=== PATIENT | male | born 1960 | race Caucasian/White ===

== ENCOUNTER → 2022-02-13 07:08 | Outpatient (CLI) | payer OTHER, SELFPAY ==
[2022-02-12 18:24] LABS: Adenovirus,PCR Not Detected (NotDetected); Bordetella Pertussis Not Detected (NotDetected); Chlamydophila Pneumoniae, PCR Not Detected (NotDetected); Coronavirus 229E Not Detected (NotDetected); Coronavirus NL63 Not Detected (NotDetected); Coronavirus OC43 Not Detected (NotDetected); Coronovirus HKU1,PCR Not Detected (NotDetected); Human Metapneumovirus Not Detected (NotDetected); Influenza A, PCR Not Detected (NotDetected); Influenza AH1, 2009 Not Detected (NotDetected); Influenza AH1, PCR Not Detected (NotDetected); Influenza AH3,PCR Not Detected (NotDetected); Influenza B, PCR Not Detected (NotDetected); Mycoplasma Pneumoniae, PCR Not Detected (NotDetected); Parainfluenza 1, PCR Not Detected (NotDetected); Parainfluenza 2, PCR Not Detected (NotDetected); Parainfluenza 3, PCR Not Detected (NotDetected); Parainfluenza 4, PCR Not Detected (NotDetected); Respiratory Syncytial Virus Not Detected (NotDetected); Rhinovirus/Enterovirus Not Detected (NotDetected)
[2022-02-12 18:38] LABS: Basophils % 0.9 % (0.1-2.0); Eosinophils # 0.1 K/mm3 (0.0-0.4); Eosinophils % 3.3 % (0.1-12.0); Hematocrit 43.5 % (42.0-52.0); Hemoglobin 14.8 g/dL (14.1-18.0); Lymphocytes # 0.5 K/mm3 (0.7-4.5); Lymphocytes % 12.1 % (10-50); Mean Corpuscular Hemoglobin 32.7 pg (27.0-31.2); Mean Corpuscular Volume 96.3 fl (80-94); Mean Platelet Volume 8.9 fl (7.4-10.4); Monocytes # 0.5 K/mm3 (0.1-1.0); Monocytes % 13.2 % (1.7-9.3); Neutrophils # 2.8 K/mm3 (1.8-7.8); Neutrophils % 70.5 % (37.0-80.0); Platelet Count 198 K/mm3 (142-424); Red Blood Count 4.52 M/mm3 (4.60-6.20); Red Cell Distribution Width 12.5 % (11.5-17.5); White Blood Count 3.9 K/mm3 (4.8-10.8)
[2022-02-12 23:02] LABS: Coronavirus 19, PCR Detected (NotDetected)
== END ==
PROVIDERS: PCP Nurse Practitioner; Visit Provider Nurse Practitioner
DX: U07.1 COVID-19 (principal)
CPT/HCPCS: 85025; 87581; 87632; 87798; C9803; U0003; U0005

== ENCOUNTER → 2022-10-19 11:02 | Outpatient (CLI) | payer OTHER, SELFPAY ==
[2022-10-19 18:45] LABS: Basophils # 0.1 K/mm3 (0-0.2); Basophils % 1.3 % (0.1-2.0); Eosinophils # 0.6 K/mm3 (0.0-0.4); Eosinophils % 8.2 % (0.1-12.0); Hematocrit 47.8 % (42.0-52.0); Hemoglobin 15.8 g/dL (14.1-18.0); Lymphocytes # 1.5 K/mm3 (0.7-4.5); Mean Corpuscular HGB Conc 33.2 g/dL (31.8-35.4); Mean Corpuscular Hemoglobin 32.2 pg (27.0-31.2); Mean Corpuscular Volume 97.1 fl (80-94); Mean Platelet Volume 9.9 fl (7.4-10.4); Monocytes # 0.5 K/mm3 (0.1-1.0); Monocytes % 6.9 % (1.7-9.3); Neutrophils # 4.1 K/mm3 (1.8-7.8); Neutrophils % 61.6 % (37.0-80.0); Platelet Count 294 K/mm3 (142-424); Red Blood Count 4.92 M/mm3 (4.60-6.20); Red Cell Distribution Width 12.5 % (11.5-17.5); White Blood Count 6.7 K/mm3 (4.8-10.8)
[2022-10-19 18:48] LABS: Alanine Aminotransferase 34 U/L (12-78); Albumin Level 4.2 g/dl (3.5-5.0); Albumin/Globulin Ratio 1.7 (1.1-1.8); Alkaline Phosphatase 124 U/L (38-126); Anion Gap 12.5 mEq/L (5-15); Aspartate Amino Transferase 33 U/L (17-59); Bilirubin,Total 0.5 mg/dl (0.2-1.3); Blood Urea Nitrogen 14 mg/dl (9-20); Calcium 8.9 mg/dl (8.4-10.2); Carbon Dioxide 25 mmol/L (22.0-30.0); Chloride 102 mmol/L (98-107); Chol/HDL Ratio 3.1 (1-3.5); Cholesterol 214 mg/dl (140-200); Estimated Glomerular Filt Rate 86 ml/min (>60); GFR (African American) 104 ML/MIN (>60); Globulin 2.5 g/dL (1.3-3.2); Glucose 91 mg/dl (74-100); HDL Cholesterol 70 mg/dl (40-60); Potassium 4.5 mmoL/L (3.5-5.1); Sodium 135 mmol/L (136-145); Total Protein,Serum 6.7 g/dl (6.3-8.2); Triglycerides 199 mg/dl (30-150); VLDL Cholesterol 40 mg/dL (0-40)
[2022-10-19 18:53] LABS: Creatinine,Urine Random 21 mg/dL (Not Estab.); Microalbumin < 6.000 mg/L (0-16.7)
[2022-10-19 18:59] LABS: Direct LDL Cholesterol 84.54 mg/dL (100-129)
[2022-10-19 19:02] LABS: Hemoglobin A1C 5.3 % (4.0-6.0)
[2022-10-19 19:19] LABS: Prostate Specific Ag Screen 0.9 ng/ml (0.0-4.0)
== END ==
LOC: LAB 11-06 11:02
PROVIDERS: PCP Nurse Practitioner; Visit Provider Nurse Practitioner
DX: I10 Essential (primary) hypertension (principal); M54.42 Lumbago with sciatica, left side; M62.830 Muscle spasm of back; Z12.5 Encounter for screening for malignant neoplasm of prostate; Z82.49 Family history of ischemic heart disease and other diseases of the circulatory system; Z79.899 Other long term (current) drug therapy
CPT/HCPCS: 80053; 80061; 82043; 82570; 83036; 84443; 85025; G0103

== ENCOUNTER 2023-08-06 17:44 | Outpatient (CLI) | payer OTHER, SELFPAY ==
[2023-08-06 18:37] LABS: Anion Gap 8.3 mEq/L (5-15); Blood Urea Nitrogen 13 mg/dl (9-20); Calcium 8.6 mg/dl (8.4-10.2); Carbon Dioxide 26 mmol/L (22.0-30.0); Chloride 104 mmol/L (98-107); Estimated Glomerular Filt Rate 98 ml/min (>60); GFR (African American) 119 ML/MIN (>60); Glucose 98 mg/dl (74-100); Potassium 4.3 mmoL/L (3.5-5.1); Sodium 134 mmol/L (136-145)
== END 2023-08-06 23:59 ==
LOC: LAB.DROPOF 17:44
PROVIDERS: PCP Nurse Practitioner; Visit Provider Nurse Practitioner
DX: Z01.818 Encounter for other preprocedural examination (principal); K02.9 Dental caries, unspecified
CPT/HCPCS: 80048

== ENCOUNTER 2024-05-07 16:09 | Outpatient (CLI) | payer OTHER, SELFPAY ==
[2024-05-07 18:33] LABS: Basophils # 0.1 K/mm3 (0-0.2); Basophils % 1.1 % (0.1-2.0); Eosinophils # 0.4 K/mm3 (0.0-0.4); Eosinophils % 7.5 % (0.1-12.0); Hematocrit 43.8 % (42.0-52.0); Lymphocytes # 1.4 K/mm3 (0.7-4.5); Lymphocytes % 26.6 % (10-50); Mean Corpuscular HGB Conc 34.2 g/dL (31.8-35.4); Mean Corpuscular Hemoglobin 33.1 pg (27.0-31.2); Mean Corpuscular Volume 96.8 fl (80-94); Mean Platelet Volume 8.7 fl (7.4-10.4); Monocytes # 0.4 K/mm3 (0.1-1.0); Neutrophils % 56.8 % (37.0-80.0); Platelet Count 257 K/mm3 (142-424); Red Blood Count 4.52 M/mm3 (4.60-6.20); White Blood Count 5.3 K/mm3 (4.8-10.8)
[2024-05-07 19:02] LABS: Alanine Aminotransferase 32 U/L (12-78); Albumin Level 4.2 g/dl (3.5-5.0); Albumin/Globulin Ratio 1.7 (1.1-1.8); Alkaline Phosphatase 106 U/L (38-126); Aspartate Amino Transferase 29 U/L (17-59); Bilirubin,Total 0.6 mg/dl (0.2-1.3); Blood Urea Nitrogen 11 mg/dl (9-20); Calcium 9.2 mg/dl (8.4-10.2); Carbon Dioxide 27 mmol/L (22.0-30.0); Chloride 106 mmol/L (98-107); Cholesterol 231 mg/dl (140-200); Estimated Glomerular Filt Rate 86 ml/min (>60); GFR (African American) 104 ML/MIN (>60); Globulin 2.5 g/dL (1.3-3.2); Glucose 98 mg/dl (74-100); HDL Cholesterol 77 mg/dl (40-60); Sodium 134 mmol/L (136-145); Total Protein,Serum 6.7 g/dl (6.3-8.2); Triglycerides 243 mg/dl (30-150); VLDL Cholesterol 49 mg/dL (0-40)
[2024-05-07 19:13] LABS: Direct LDL Cholesterol 93.51 mg/dL (100-129)
[2024-05-07 20:38] LABS: Thyroid Stimulating Hormone 2.02 uIU/mL (0.465-4.68)
[2024-05-07 22:18] LABS: Hemoglobin A1C 5.3 % (4.0-6.0)
== END 2024-05-07 23:59 | disposition home or self-care (01) ==
LOC: LAB.DROPOF 05-08 09:48
PROVIDERS: PCP Nurse Practitioner; Visit Provider Nurse Practitioner
DX: I10 Essential (primary) hypertension (principal); Z12.5 Encounter for screening for malignant neoplasm of prostate
CPT/HCPCS: 80050; 80053; 80061; 83036; 84443; 85025; G0103

== ENCOUNTER 2025-06-03 10:20 | Outpatient (CLI) | payer OTHER, SELFPAY ==
--- OUTSIDE RECORDS SUMMARY | 2025-06-07 10:27 | XMS_ITS | Clinical Summary ---
Author Organization [facility] Address [address] [place] [address] Phone Care Team Providers Care Bilingual Spanish Inbound Sales Name Role Phone Unavailable Primary Care Provider Unavailabl e Allergies No known active allergies Medications AMLODIPINE/VALSA RTAN/HCTZ (EXFORGE HCT ORAL) Take by mouth daily. Active travoprost, benzalkonium, (TRAVATAN) 0.004 % ophthalmic solution Apply 1 Drop to eye nightly. Active amLODIPine (NORVASC) 5 mg tablet TAKE ONE TABLET BY MOUTH DAILY 30 Tab 0 11/07/2012 Active lisinopril (PRINIVIL;ZESTRI L) 20 mg TAKE ONE TABLET BY MOUTH DAILY 30 Tab 0 02/11/2013 Active omeprazole (PRILOSEC OTC) 20 mg Oral Tablet, Delayed Release (E.C.) Take 1 Tablet by mouth daily. 90 Tablet 3 01/06/2025 Active Active Problems Problem Noted Date Diagnosed Date Esophageal obstruction due to food impaction 05/2025 Surgical History Surgery Date Site/Laterality Comments UPPER GASTROINTESTINAL ENDOSCOPY 07/29/2009 EYE SURGERY 07/29/2006 lasix left eye only CATARACT EXTRACTION EXTRACAP SULAR W/ INTRAOCULAR LENS IMPLANTATION 10/27/[address] Grant Hunter Medical History Medical History Date Comments Hypertension Glaucoma left eye only Social History Tobacco Use Types Packs/Day Years Used Date Smoking Tobacco: Former Alcohol Use Standard Drinks/Week Comments Yes 12 (1 standard drink = 0.6 oz pu re alcohol) 3-4 beers per day Sex and Gender Information Value Date Recorded Sex Assigned at Not on file Legal Sex Male 8:35 AM EDT Gender Identity Not on file Sexual Orientation Not on file Last Filed Vital Signs Vital Sign Reading Time Taken Comments Blood Pressure 145/85 01/06/2025 1:30 PM EDT Pulse 69 01/06/2025 1:30 PM EDT Temperature 36.3 C (97.3 F) 01/06/2025 1:09 PM EDT Respiratory Rate 16 01/06/2025 1:30 PM EDT Oxygen Saturation 100% 01/06/2025 1:30 PM EDT Inhaled Oxygen Concentration - - Weight 69.7 kg (153 lb 9.6 oz) 01/06/2025 9:51 A M EDT Height 170.2 cm (5' 7 ) 10/04/2011 10:37 AM EST Body Mass Index - - Plan of Treatment Health Maintenance Due Date Last Done Comments Annual Wellness Exam 1965 Hepatitis C Screening 1980 DTaP/TDaP/Td (1 - Tdap) 1981 Cologuard 2007 Colon Cancer Screening 2007 Colonoscopy 2007 FIT 2007 Sigmoidoscopy 2007 Virtual Colonography 2007 Pneumococcal Vaccine 50+ (1 of 1 - PCV) 2012 Zoster (1 of 2) 2012 COVID-19 Vaccine (3 - 2024-2 6 season) 2025 04/04/2021, 03/07/2021 Influenza Vaccine (#1) 2025 Hepatitis B Vaccine Aged Out No longe r eligible based on patient's age to complete this topic Meningococcal B Vaccine Aged Out No l onger eligible based on patient's age to complete this topic Insurance [employer] OPEN ACCESS [address] OPEN ACCESS AET[employer] OPEN ACCESS [address] [place] [id number]
--- OUTSIDE RECORDS SUMMARY | 2025-06-07 10:27 | XMS_ITS | Clinical Summary ---
Author Organization [facility] Address [address] [place] [address] Care Team Providers Care Sugar Laboratory Assistant Name Role Phone None, None Primary Care Provider Unavailabl e Allergies No known active allergies Medications amLODIPine (NORVASC) 5 mg tablet Take 5 mg by mouth daily. 3 Active lisinopriL (PRINIVIL, ZESTRIL) 20 mg tablet Take 20 mg by mouth daily. 3 Active fexofenadine (DIONY) 180 mg tablet Take 180 mg by mouth daily. Active ibuprofen (MOTRIN) 200 mg tablet Take 200 mg by mouth every 6 hours as needed. Active methylPREDNISol one (MEDROL) 4 mg tab (dosepak) follow package directions 21 Tablet 3 Active benzonatate (TESSALON) 100 mg capsule Take 1 Capsule (100 mg) by mouth 3 times daily as needed for Cough for up to 30 doses. 30 Capsule 1 3 Active Active Problems No known active problems Social History Tobacco Use Types Packs/Day Years Used Date Smoking Tobacco: Some Days Cigarettes Cigars Smokeless Tobacco: Never Tobacco Cessation:Ready to Q uit: Not Asked; Counseling Given: Not Answered Alcohol Use Standard Drinks/Week Comments Yes 0 (1 standard drink = 0.6 oz pur e alcohol) Sex and Gender Information Value Date Recorded Sex Assigned at Not on file Legal Sex Male 8:49 AM EST Gender Identity Not on file Sexual Orientation Not on file Last Filed Vital Signs Vital Sign Reading Time Taken Comments Blood Pressure - - Pulse - - Temperature - - Respiratory Rate - - Oxygen Saturation - - Inhaled Oxygen Concentration - - Weight 72.6 kg (160 lb) 03/06/2023 2:34 PM EDT Height 170.2 cm (5' 7 ) 03/06/2023 2:34 PM EDT Body Mass Index 25.06 03/06/2023 2:34 PM EDT Plan of Treatment Health Maintenance Due Date Last Done Comments Cologuard 1962 Colonoscopy 1962 Colorectal Cancer Screening 1962 FIT 1962 Lipid Screening 1980 Tetanus Vaccination (Every 10 Years) 1980 Hepatitis C Virus (HCV) Screening 1983 Pneumococcal Vaccine: 50+ Years (1 of 1 - PCV) 012 Zoster-RZV(Shingrix) (1 of 2) 2012 Depression Screening 07/29/2024 COVID-19 Vaccine (1 - 2024- season) 2025 Influenza Vaccination (#1) 2025 RSV Vaccines (1 - 1-dose 75+ series) 2037 Care Teams Sugar Laboratory Assistant Relationship Specialty Start Date End Date None, None [address] [place] [address] PCP - General 08/20/22
== END 2025-06-03 23:59 ==
LOC: LAB.DROPOF 06-07 10:21
PROVIDERS: PCP Nurse Practitioner; Visit Provider Nurse Practitioner Family
DX: R10.30 Lower abdominal pain, unspecified (principal); R30.0 Dysuria
CPT/HCPCS: 87086

== ENCOUNTER 2025-06-07 16:34 | Outpatient (CLI) | payer OTHER, SELFPAY ==
[2025-06-07 16:07] LABS: Hematocrit 42.2 % (42.0-52.0); Hemoglobin 13.8 g/dL (14.1-18.0); Immature Granulocytes % 0.4 %; Mean Corpuscular HGB Conc 32.7 g/dL (31.8-35.4); Mean Corpuscular Hemoglobin 32.0 pg (27.0-31.2); Mean Corpuscular Volume 97.9 fl (80-94); Nucleated Red Blood Cells % 0 %; Platelet Count 361 K/mm3 (142-424); Red Blood Count 4.31 M/mm3 (4.60-6.20); Red Cell Distribution Width-SD 40.4 fL; White Blood Count 13.6 K/mm3 (4.8-10.8)
[2025-06-07 18:23] LABS: Alanine Aminotransferase 39 U/L (12-78); Albumin Level 3.7 g/dl (3.5-5.0); Albumin/Globulin Ratio 1.2 (1.1-1.8); Alkaline Phosphatase 269 U/L (38-126); Amylase 47 U/L (30-110); Anion Gap 7.3 mEq/L (5-15); Aspartate Amino Transferase 34 U/L (17-59); Bilirubin,Total 0.6 mg/dl (0.2-1.3); Blood Urea Nitrogen 11 mg/dl (9-20); Calcium 9.2 mg/dl (8.4-10.2); Carbon Dioxide 28 mmol/L (22.0-30.0); Chloride 95 mmol/L (98-107); Creatinine,Serum 0.80 mg/dl (0.66-1.25); Estimated Glomerular Filt Rate 98 ml/min (>60); GFR (African American) 119 ML/MIN (>60); Globulin 3.2 g/dL (1.3-3.2); Glucose 117 mg/dl (74-100); Lipase 42 U/L (23-300); Potassium 4.3 mmoL/L (3.5-5.1); Sodium 126 mmol/L (136-145); Total Protein,Serum 6.9 g/dl (6.3-8.2)
[2025-06-07 18:54] LABS: Thyroid Stimulating Hormone 0.84 uIU/mL (0.465-4.68)
[2025-06-07 22:43] LABS: Hemoglobin A1C 5.1 % (4.0-6.0)
--- OUTSIDE RECORDS SUMMARY | 2025-06-08 16:35 | XMS_ITS | Clinical Summary ---
Author Organization [facility] Address [address] [place] [address] Care Team Providers Care Fashion Designer Name Role Phone None, None Primary Care [...] - 1-dose 75+ series) 2037 Care Teams Fashion Designer Relationship Specialty Start Date End Date None, None [address] [place] [address] PCP - General 08/20/22
--- OUTSIDE RECORDS SUMMARY | 2025-06-08 16:35 | XMS_ITS | Clinical Summary ---
Author Organization [facility] Address [address] [place] [address] Phone Care Team Providers Care Primer And Powder Canning Leader Name Role Phone Unavailable Primary Care Provider [...] topic Insurance AETNA OPEN ACCESS [address] OPEN [address] AETNA OPEN ACCESS [address] [place] [id number]
== END 2025-06-07 23:59 | disposition home or self-care (01) ==
LOC: LAB.DROPOF 06-08 16:34
PROVIDERS: PCP Nurse Practitioner; Visit Provider Nurse Practitioner
DX: R10.30 Lower abdominal pain, unspecified (principal); R81 Glycosuria
CPT/HCPCS: 80053; 82150; 83036; 83690; 84443; 85025; G0103

== ENCOUNTER 2025-06-21 15:00 | Outpatient (CLI) | payer OTHER, SELFPAY ==
[2025-06-21 19:11] LABS: Microscopic, Urine URINE MICROSCOPIC (MICROSCOPIC)
[2025-06-21 19:34] LABS: Hematocrit 39.6 % (42.0-52.0); Hemoglobin 13.6 g/dL (14.1-18.0); Immature Granulocytes % 0.3 %; Mean Corpuscular HGB Conc 34.3 g/dL (31.8-35.4); Mean Corpuscular Hemoglobin 32.2 pg (27.0-31.2); Mean Corpuscular Volume 93.6 fl (80-94); Nucleated Red Blood Cells % 0 %; Platelet Count 393 K/mm3 (142-424); Red Blood Count 4.23 M/mm3 (4.60-6.20); Red Cell Distribution Width-SD 37.7 fL; White Blood Count 12.3 K/mm3 (4.8-10.8)
[2025-06-21 19:42] LABS: Bilirubin,Urine Negative (Negative); Color,Urine YELLOW (Yellow); Glucose,Urine (UA) TRACE (Negative); Ketones,Urine Negative (Negative); Leukocyte Esterase,Urine Negative (Negative); PH,Urine 6.5 (5.0-8.5); Protein,Urine Negative (Negative); Specific Gravity, Urine <= 1.005 (1.005-1.030); Urobilinogen,Urine 0.2 EU/dl (0.2)
[2025-06-21 19:54] LABS: Albumin Level 3.8 g/dl (3.5-5.0); Chloride 101 mmol/L (98-107); Potassium 4.1 mmoL/L (3.5-5.1); Sodium 135 mmol/L (136-145)
[2025-06-21 19:57] LABS: Alanine Aminotransferase 40 U/L (12-78); Albumin/Globulin Ratio 1.4 (1.1-1.8); Alkaline Phosphatase 173 U/L (38-126); Anion Gap 13.1 mEq/L (5-15); Aspartate Amino Transferase 28 U/L (17-59); Bilirubin,Total 0.3 mg/dl (0.2-1.3); Blood Urea Nitrogen 13 mg/dl (9-20); Calcium 8.8 mg/dl (8.4-10.2); Carbon Dioxide 25 mmol/L (22.0-30.0); Creatinine,Serum 0.80 mg/dl (0.66-1.25); Estimated Glomerular Filt Rate 98 ml/min (>60); GFR (African American) 119 ML/MIN (>60); Globulin 2.8 g/dL (1.3-3.2); Glucose 94 mg/dl (74-100); Total Protein,Serum 6.6 g/dl (6.3-8.2)
[2025-06-21 20:06] LABS: RBC,Urine Occasional #/hpf (0-3); Squamous Epithelial Cell,Urine Occasional #/hpf (0-5); WBC,Urine Occasional #/hpf (0-3)
[2025-06-21 20:07] LABS: Bacteria,Urine Trace /lpf
--- OUTSIDE RECORDS SUMMARY | 2025-06-22 10:42 | XMS_ITS | Clinical Summary ---
Author Organization [facility] Address [address] [place] [address] Care Team Providers Care Concrete Rod Buster Name Role Phone None, None Primary Care [...] - 1-dose 75+ series) 2037 Care Teams Concrete Rod Buster Relationship Specialty Start Date End Date None, None [address] [place] [address] PCP - General 08/20/22
--- OUTSIDE RECORDS SUMMARY | 2025-06-22 10:42 | XMS_ITS | Clinical Summary ---
Author Organization [facility] Address [address] [place] [address] Phone Care Team Providers Care Dermatological Surgeon Name Role Phone Unavailable Primary Care Provider [...] topic Insurance AETNA OPEN ACCESS [address] AETNA OPEN ACCESS [address] [place] [id number]
== END 2025-06-21 23:59 ==
LOC: LAB.DROPOF 06-22 10:38
PROVIDERS: PCP Nurse Practitioner; Visit Provider Nurse Practitioner
DX: R10.30 Lower abdominal pain, unspecified (principal); R30.0 Dysuria; R19.4 Change in bowel habit; R81 Glycosuria; D72.829 Elevated white blood cell count, unspecified
CPT/HCPCS: 80053; 81001; 85025

== ENCOUNTER 2025-07-02 07:50 | Outpatient (CLI) | payer OTHER, SELFPAY ==
--- OUTSIDE RECORDS SUMMARY | 2025-07-02 07:53 | XMS_ITS | Clinical Summary ---
Author Organization [facility] Address [address] [place] [address] Phone Care Team Providers Care Salvage Winder Name Role Phone Unavailable Primary Care Provider [...] topic Insurance AETNA OPEN ACCESS [address] AETNA OPEN ACCESS [address] [place] [id number]
--- OUTSIDE RECORDS SUMMARY | 2025-07-02 07:53 | XMS_ITS | Clinical Summary ---
Author Organization [facility] Address [address] [place] [address] Care Team Providers Care Foot Orthopedist Name Role Phone None, None Primary Care [...] - 1-dose 75+ series) 2037 Care Teams Foot Orthopedist Relationship Specialty Start Date End Date None, None [address] [place] [address] PCP - General 08/20/22
--- NOTE | 2025-07-02 08:15 | CT_ITS ---
FINAL REPORT TECHNIQUE: Thin section axial images are obtained through the abdomen and pelvis after intravenous contrast. Reconstruction images were obtained from the axial data. Exam was performed using dose reduction techniques. This study was performed with techniques to keep radiation doses as low as reasonably achievable (ALARA). Individualized dose reduction techniques using automated exposure control or adjustment of mA and/or kV according to the patient's size were employed. CLINICAL HISTORY: URGENT - low abd pain, elevated WBC, dysuria COMPARISON: None FINDINGS: LUNG BASES: Lung bases are clear. Heart size is normal. LIVER: Homogeneous. No focal lesion. GALLBLADDER/BILIARY SYSTEM: Gallbladder is present. No gallstones. No biliary dilatation. SPLEEN: Unremarkable. PANCREAS: Unremarkable. ADRENALS: Unremarkable. KIDNEYS/URETERS/BLADDER: No hydronephrosis, renal mass, or renal stone. There is wall thickening of the dome of the urinary bladder asymmetric to the left. GI TRACT: No small bowel obstruction or dilatation. Normal appendix. There is focal wall thickening of the sigmoid colon with associated diverticula which are inflamed, with soft tissue inflammatory change between the sigmoid colon and the bladder. No perforation or abscess is identified. PELVIC ORGANS: Unremarkable for age. The prostate is unremarkable. LYMPH NODES/RETROPERITONEUM/MESENTERY: No lymphadenopathy. No abdominal aortic aneurysm. ABDOMINAL WALL: There is a small umbilical hernia containing fat. FREE FLUID: No ascites. BONES: No acute osseous abnormality. IMPRESSION: Acute sigmoid diverticulitis with prominent inflammatory change adjacent to a thickened bladder wall. The patient is at risk to develop a colorectal fistula. Reviewed, Interpreted and Dictated by Misty Kim MD Transcribed by Sharon Hernandez Authenticated and [facility]
[2025-07-02] MEDS: SODIUM CHLORIDE 0.9% 10ML SYR (RAD ONLY) 10 ML IV (08:32)
[2025-07-02] MEDS: BARIUM SULFATE(READI-CAT2);450ML BOTTLE 450 ML PO (08:32)
[2025-07-02] MEDS: IOPAMIDOL-370 (76%);100ML BOTTLE 75 ML IV (08:32)
== END 2025-07-02 23:59 | disposition home or self-care (01) ==
LOC: RAD 07:51
PROVIDERS: PCP Nurse Practitioner; Visit Provider Nurse Practitioner
DX: K57.32 Diverticulitis of large intestine without perforation or abscess without bleeding (principal); N32.89 Other specified disorders of bladder; R30.0 Dysuria; R81 Glycosuria; Z91.89 Other specified personal risk factors, not elsewhere classified
CPT/HCPCS: 74177; Q9967

== ENCOUNTER 2025-07-02 14:20 | Emergency (ER) | payer OTHER, SELFPAY ==
[2025-07-02] VITALS (7 sets, daily range): BP systolic 131–176; BP diastolic 71–86; PULSE 62–76; RESP 16–18; TEMP 36.4–36.6; O2SAT 96–99; BMI 24.1
--- NOTE | 2025-07-02 14:46 | ED_ITS ---
<Statement entered by Rufus Cruz MD - 07/03/25 15:30> I was consulted by the LAURE, and we discussed the complexity of the problems being addressed. I approve the treatment and management plan for this patient's care in the emergency department, thus performing a substantive portion of the medical decision making. Rufus Cruz MD <Statement entered by Kyler Mejia DO - 07/02/25 23:19> I was consulted by the LAURE, and we discussed the complexity of problems being addressed. I approved the treatment and management plan for this patient's care in the emergency department, thus performing a substantive portion of the medical decision making. Kyler Mejia DO Discharge Plan Disposition Patient Disposition: Xfer Other Condition: Good Prescriptions Prescriptions: No Action metronidazole 500 mg tablet 500 mg PO TID 7 Days Qty: 21 0RF levofloxacin 500 mg tablet 500 mg PO Q24H Qty: 7 0RF lisinopril 20 mg tablet 20 mg PO DAILY Qty: 90 1RF Rx Instructions: NEEDS APPOINTMENT PRIOR TO FURTHER REFILLS amlodipine 5 mg tablet 5 mg PO DAILY Qty: 90 1RF Rx Instructions: NEEDS APPOINTMENT PRIOR TO FURTHER REFILLS Referrals Follow up/Referrals: Carrie Bailey APRN [Primary Care Provider, Family Practice] - See instructions Clinical Impressions Clinical Impression: Diverticulitis of sigmoid colon Stand Alone Forms Stand Alone Forms: Transfer Record - ED Print Language Print Language: Occitan Discharge ED Provider: Rufus Cruz General Adult HPI General Chief complaint: Abdominal Pain Stated complaint: abnormal CT results Time Seen by Provider: 07/02/25 14:32 Mode of Arrival: Ambulatory Source of Information: Patient Description of Symptoms (Recalled from ER Triage Doc. by RN): Reports abdomen pain for one month. Went to see his PCP who ordered a ct scan of his abdomen. Called him to let him know it showed diverticulitis and to go the ER. History of Present Illness HPI narrative: 64-year-old male presents the emergency department for an abnormal CT scan result that was performed today. Patient was called by his PCP today stating that there has been some abnormal results on the patient CT abdomen pelvis today. And instructed to come to the emergency department. Patient has been having some persistent lower abdominal pain located on the left lower quadrant/suprapubic area for the last 3 weeks, patient was told there was possible diverticulitis , by PCP, patient has taken around what sound like Augmentin p.o. antibiotic therapy, as well as ciprofloxacin and Flagyl, however patient tells me that he did not end up taking the Flagyl p.o. antibiotic due to drinking over the , patient also endorses some dysuria and urinary type symptomatology, patient also mitts to subjective fever and chills no recorded Tmax, no nausea, no vomiting, no constipation no diarrhea, no hematuria melena hematochezia Metamucil hemoptysis, patient is a occasional smoker (cigars), occasional alcohol use, denies any illicit drug use, other past medical history is consistent with hypertension otherwise unremarkable past medical history. Initial triage vitals are unremarkable. Of note I was able to review the patient's CT and pelvis with contrast that was performed today along with the corresponding radiologic report. Concern for acute sigmoid diverticulitis with a prominent inflammatory change adjacent to the thickened bladder wall, the patient is at risk to develop a colorectal fistula. Please note that above description of symptoms, in this electronic medical record under categorization of recalled from ER triage doctor by RN are reflective of an initial nursing assessment, however, is not reflective of my full history and physical exam that was personally taken and clarified. Consequentially, this preceding description of symptoms, which may include the patient's categorized chief complaint in the EMR, do not reflect my personal clinical impression, and the ultimate description of history of present illness and patient stated complaints should be deferred to this section of the note. Unless stated otherwise or congruent with this section of the note, additional signs, symptoms, or incongruence should be interpreted as inaccurate with my clinical impression. Onset (ago): week(s) Related Data Previous Rx's ?Medication ?Instructions ?Recorded amlodipine 5 mg tablet 5 mg PO DAILY #90 tabs 02/22 lisinopril 20 mg tablet 20 mg PO DAILY #90 tabs 01/27 03/22 levofloxacin 500 mg tablet 500 mg PO Q24H #7 tabs 05/30 11/20 metronidazole 500 mg tablet 500 mg PO TID 7 days #21 t abs 06/21/25 Allergies Allergy/AdvReac Type Severity Reaction Status Date / Time No Known Allergies Allergy Verified 06/21/25 15:18 [facility] Disclaimer: The information contained in this section may have been updated after the patient was seen, as this information can be updated by other users. Medical History Lower abdominal pain Colon polyp Allergic rhinitis Family history of colorectal cancer Family history of ASCVD Screening for malignant neoplasm of prostate Essential hypertension Surgical History History of colonoscopy (~2023) Social History (Updated 06/21/25 @ 15:18 by Dorothea Oates MA) Smoking Status: Never smoker alcohol intake: never current occupational status: other Travel in the last 8 weeks?: None Have you lived/traveled outside US in past 30 days?: No Contact w/someone who lives/traveled outside US past 30 days?: No Exposure to someone with infectious disease in past 14 days?: No Do you have a fever (greater than 100.4 F or 38 C)?: No Have you tested positive for COVID-19?: No Exposed to someone with COVID-19 in past 14 days?: No Do you have a sore throat?: No Do you have a cough?: No Do you have any weakness?: No Do you have any diarrhea?: No Are you experiencing any unusual bleeding?: No Do you have any muscle aches/pain?: No Do you have any abdominal pain?: No Are you experiencing loss of taste or smell?: No ROS Obtained: Yes All systems reviewed & no additional complaints except as documented Physical Exam General General appearance: alert and in no apparent distress Head Head exam: atraumatic and normocephalic Eye Eye exam: Present PERRL and EOMI ENT ENT exam: Present mucous membranes moist Neck Neck exam: Present normal inspection Chest Chest inspection: Present normal inspection and symmetric chest wall rise Respiratory Respiratory exam: Present normal lung sounds bilaterally; Absent respiratory distress Cardiovascular Cardiovascular exam: Present regular rate and normal rhythm Abdominal Exam Abdominal exam: Present soft and tenderness; Absent distention, guarding, rebound or rigidity Abdominal tenderness: Present LLQ, suprapubic and mild Extremities Exam Extremities exam: Present normal inspection Neurological Exam Neurological exam: Present alert and oriented X3 Psychiatric Psychiatric exam: Present normal affect Skin Skin exam: Present warm and dry Medical Decision Making Medical Records Medical records reviewed: Yes I reviewed the patient's medical records. Screening: Per USPSTF and CDC recommendations, given the prevalence of disease in our region, it is our hospital?s policy to screen for HIV and viral Hepatitis for all patients aged 18 and over and those with ongoing risk factors. Agapito Inquiry Pt receiving controlled substance: No Agapito was queried for this patient: No Vital Signs: 07/02/25 14:24 07/02/25 15:05 07/02/25 15:30 Temperature 97.6 F Temperature Source Oral Pulse Rate 66 66 Pulse Rate [Radial] 73 Respiratory Rate 18 Blood Pressure 134/75 131/74 Blood Pressure [Right Arm] 153/71 H Blood Pressure Mean [Right Arm] 98 Blood Pressure Source Blood Pressure Source [Right Arm] Automatic Cuff Blood Pressure Position Blood Pressure Position [Right Arm] Sitting 02 Sat by Pulse Oximetry 98 98 98 Oxygen Delivery Method Room Air Room Air Room Air 07/02/25 16:00 07/02/25 17:01 07/02/25 17:31 Temperature Temperature Source Pulse Rate 70 73 62 Pulse Rate [Radial] Respiratory Rate Blood Pressure 176/83 H 146/86 H 151/82 H Blood Pressure [Right Arm] Blood Pressure Mean [Right Arm] Blood Pressure Source Blood Pressure Source [Right Arm] Blood Pressure Position Blood Pressure Position [Right Arm] 02 Sat by Pulse Oximetry 97 96 97 Oxygen Delivery Method Room Air Room Air Room Air 07/02/25 18:02 Temperature 97.8 F Temperature Source Oral Pulse Rate 76 Pulse Rate [Radial] Respiratory Rate 16 Blood Pressure 151/82 H Blood Pressure [Right Arm] Blood Pressure Mean [Right Arm] Blood Pressure Source Automatic Cuff Blood Pressure Source [Right Arm] Blood Pressure Position Supine Blood Pressure Position [Right Arm] 02 Sat by Pulse Oximetry Oxygen Delivery Method Room Air Lab Data Lab results reviewed: Yes I reviewed the patient's lab results. Lab Results 07/02/25 14:44: WBC 6.9, RBC 4.44 L, Hgb 14.4, Hct 40.9 L, MCV 92.1, MCH 32.4 H, MCHC 35.2, RDW 11.4 L, Plt Count 278, MPV 10.0, Neut % (Auto) 60.8, Lymph % (Auto) 20.5, Dubois % (Auto) 8.2, Eos % (Auto) 8.7, Baso % (Auto) 1.4, Neut # (Auto) 4.2, Lymph # (Auto) 1.4, Dubois # (Auto) 0.6, Eos # (Auto) 0.6 H, Baso # (Auto) 0.1, Sodium 131 L, Potassium 3.9, Chloride 100, Carbon Dioxide 26, Anion Gap 8.9, BUN 11, Creatinine 0.80, Estimated Creat Clear 76, Estimated GFR 98, Est GFR ( Amer) 119, Glucose 102 H, Lactate 0.8, Calcium 9.1, Total Bilirubin 0.4, AST 26, ALT 25, Alkaline Phosphatase 135 H, Total Protein 7.4, Albumin 4.2, Globulin 3.2, Albumin/Globulin Ratio 1.3, Lipase 78, HCV Ab LAURE w/Rflx PCR Qn Negative, HIV Ag/Ab Combo Qual Negative 07/02/25 15:04: Urine Color Yellow, Urine Appearance Clear, Urine pH 6.0, Ur Specific Eminence 1.010, Urine Protein Negative, Urine Glucose (UA) Negative, Urine Ketones Negative, Urine Blood Negative, Urine Nitrate Negative, Urine Bilirubin Negative, Urine Urobilinogen 0.2, Ur Leukocyte Esterase Negative, Urine RBC Occasional, Urine WBC Occasional, Urine Bacteria Trace 07/02/25 14:44 07/02/25 14:44 Orders (Tests/Meds): ED MEDICATIONS Discontinued Medications Generic Name Dose Route Start Last Admin Trade Name Freq PRN Reason Stop Dose Admin Piperacillin Sod/Tazobactam 50 mls @ 100 mls/hr 07/02/25 15:57 07/02/25 17:23 Sod 3.375 gm/ Sodium Chloride IV 07/02/25 16:26 Infused ONCE ONE Infusion ORDERS Category Date Time Status Complete Blood Count Auto Diff Stat Lab 07/02/25 14:44 Completed Comprehensive Metabolic Panel Stat Lab 07/02/25 14:44 Completed HIV Combo Stat Lab 07/02/25 14:44 Completed Hepatitis C Ab Qual. W/ RFX Stat Lab 07/02/25 14:44 Completed Lactic Acid Stat Lab 07/02/25 14:44 Completed Lipase Stat Lab 07/02/25 14:44 Completed Urinalysis and Microscopic Stat Lab 07/02/25 15:04 Completed Blood Culture Stat Micro 07/02/25 16:25 Received Medical Decision Narrative: 64-year-old male presents emergency department with lower quadrant abdominal pain suprapubic pain, dysuria for 3 weeks, differential diagnose include but not limited to, acute diverticulitis, colorectal fistula, gastroenteritis, ileitis, colitis, acute UTI, acute pyelonephritis among others I discussed this patient's case with the attending physician Dr. Estrada as well as Dr. Mejia at shift change. Will obtain basic laboratory studies, lactate, urinalysis, lipase level, CBC is unremarkable Mild hyponatremia 131, no lactic acidosis UA is notable for negative hematuria, negative ketonuria, negative nitrites, negative leukocyte esterase, occasional RBCs occasional WBCs and trace bacteria. I had a long discussion with Dr. Santos at the on-call general surgeon at approximately 3:50 PM, he would recommend discussing with reading radiologist to determine if this is a colovesicular fistula risk versus colorectal fistula risk, if colovesicular fistula risk patient may need transfer to higher level of care/facility with urology involvement, if colorectal fistula versus acute sigmoid diverticulitis with inflammatory stranding, could potentially admit to hospitalist service with IV antibiotics and GI consultation. Will obtain blood cultures, make the patient n.p.o. in the emergency department, will give 3.375 IV Zosyn for infection prophylaxis. I was able to discuss this patient's case with the reading radiologist who read the patient's CT abdomen pelvis with contrast today as outpatient study, at approximately 4 PM, there was a dictation error and she was concerned about a colovesicular fistula , instead of a colorectal fistula, she will addend the radiology report. I discussed this patient's case with [facility] transfer physician Dr. Ortega at approximately 5:10 PM, unfortunately, emergency at [facility] is at capacity and not except any new patients at this time, patient will be placed as an open case/wait list, and will reevaluate tomorrow. Transfer physician [facility] recommends me trying other facilities as they are at maximal capacity at this time. I discussed this patient's case in depth with the [facility] transfer physician Dr. Telles at approximately 5:38 PM, also discussed with the colorectal surgeon on-call, felt the patient was in need of transfer for IV antibiotics, and continued monitoring. Patient was accepted for transfer for acute diverticulitis with concern for colovesicular fistula risk, to [facility] emergency department. I discussed need for transfer with the patient family bedside patient and family are in agreement with the current treatment plan/transfer plan patient is very adamant about wanting to go POV, I did state that I would rather the patient go via ambulance, patient is very adamant and at the bedside states that she will drive him directly to [facility] emergency department via POV. All risk and benefits of doing this were discussed with patient's family the bedside patient family in agreement with current treatment plan/transfer plan and to go POV to [facility] emergency department. Patient stable for transport via POV at approximately 6 PM. Critical Care Critical Care Time Critical Care Time: No
[2025-07-02 15:01] LABS: Hematocrit 40.9 % (42.0-52.0); Hemoglobin 14.4 g/dL (14.1-18.0); Immature Granulocytes % 0.4 %; Mean Corpuscular HGB Conc 35.2 g/dL (31.8-35.4); Mean Corpuscular Hemoglobin 32.4 pg (27.0-31.2); Mean Corpuscular Volume 92.1 fl (80-94); Nucleated Red Blood Cells % 0 %; Platelet Count 278 K/mm3 (142-424); Red Blood Count 4.44 M/mm3 (4.60-6.20); Red Cell Distribution Width-SD 38.7 fL; White Blood Count 6.9 K/mm3 (4.8-10.8)
[2025-07-02 15:04] LABS: Alanine Aminotransferase 25 U/L (12-78); Albumin Level 4.2 g/dl (3.5-5.0); Albumin/Globulin Ratio 1.3 (1.1-1.8); Alkaline Phosphatase 135 U/L (38-126); Anion Gap 8.9 mEq/L (5-15); Aspartate Amino Transferase 26 U/L (17-59); Bilirubin,Total 0.4 mg/dl (0.2-1.3); Blood Urea Nitrogen 11 mg/dl (9-20); Calcium 9.1 mg/dl (8.4-10.2); Carbon Dioxide 26 mmol/L (22.0-30.0); Chloride 100 mmol/L (98-107); Creatinine Clearance Estimated 76 mL/min (50-200); Creatinine,Serum 0.80 mg/dl (0.66-1.25); Estimated Glomerular Filt Rate 98 ml/min (>60); GFR (African American) 119 ML/MIN (>60); Globulin 3.2 g/dL (1.3-3.2); Glucose 102 mg/dl (74-100); Lipase 78 U/L (23-300); Potassium 3.9 mmoL/L (3.5-5.1); Sodium 131 mmol/L (136-145); Total Protein,Serum 7.4 g/dl (6.3-8.2)
[2025-07-02 15:10] LABS: Microscopic, Urine URINE MICROSCOPIC (MICROSCOPIC)
[2025-07-02 15:11] LABS: Bilirubin,Urine Negative (Negative); Color,Urine YELLOW (Yellow); Glucose,Urine (UA) Negative (Negative); Ketones,Urine Negative (Negative); Leukocyte Esterase,Urine Negative (Negative); PH,Urine 6.0 (5.0-8.5); Protein,Urine Negative (Negative); Specific Gravity, Urine 1.010 (1.005-1.030); Urobilinogen,Urine 0.2 EU/dl (0.2)
[2025-07-02 15:25] LABS: Bacteria,Urine Trace /lpf; RBC,Urine Occasional #/hpf (0-3); WBC,Urine Occasional #/hpf (0-3)
[2025-07-02 16:02] LABS: Hepatitis C Ab Qual. W/ RFX NEGATIVE (Negative)
[2025-07-02] MEDS: PIPERACILLIN/TAZO 3.375 GM in 0.9 % SODIUM CHLORIDE 50 ML IV (16:34)
--- NOTE | 2025-07-02 16:43 | PC.NURSE ---
Called [facility] for a patient transfer, they are going to call back.
--- NOTE | 2025-07-02 17:23 | PC.NURSE ---
Called for a patient transfer per Nestor. They are going to call back soon.
== END 2025-07-02 18:02 | disposition other institution (70) ==
PROVIDERS: Physician Assistant; Emergency Provider Student in an Organized Health Care Education/Training Program; PCP Nurse Practitioner
DX: R10.32 Left lower quadrant pain (principal); R10.24 Suprapubic pain; K57.32 Diverticulitis of large intestine without perforation or abscess without bleeding; R30.0 Dysuria
CPT/HCPCS: 80053; 81001; 83605; 83690; 85025; 86803; 87040; 87389; 96365; 99285; J2543